=== PATIENT | male | born 1995 | race Caucasian/White ===

== ENCOUNTER 2018-04-16 01:31 | Outpatient (CLI) | payer BC, SELFPAY ==
--- NOTE | 2018-04-16 10:50 | DI.US_ITS ---
SYMPTOMS/DIAGNOSIS: THYROID PAIN, E07.89 THYROID ULTRASOUND: Routine examination was performed. The right lobe measures 4.3 x 1.4 x 1.4 cm. the left lobe measures 5.4 x 1.5 x 1.5 cm. The isthmus is within normal limits at 0.3 cm. The thyroid gland is homogeneous. No thyroid mass is seen. There is normal and symmetric blood flow to the thyroid gland. IMPRESSION: Normal thyroid ultrasound.
== END 2018-04-16 01:51 ==
PROVIDERS: PCP Nurse Practitioner; Visit Provider Nurse Practitioner
DX: E07.89 Other specified disorders of thyroid (principal)
CPT/HCPCS: 76536

== ENCOUNTER 2019-09-15 09:54 | Outpatient (REF) | payer BC, SELFPAY ==
[2019-09-15 19:03] LABS: Abs Immature Grans 0.02 k/cumm (0.0-0.09); Absolute Basophil Count 0.01 k/cumm (0.0-0.2); Absolute Eosinophil Count 0.07 k/cumm (0.0-0.7); Absolute Monocyte Count 0.43 k/cumm (0.11-0.7); Absolute Neutrophil Count 3.31 k/cumm (1.2-6.7); Basophils % 0.2; Eosinophils % 1.3; HCT 49.6 % (40.0-50.0); HGB 16.6 g/dL (13.5-17.5); Immature Grans % 0.4 %; Lymphocytes % 26.7; Mean Corp. HGB Concentration 33.5 g/dL (32.0-36.0); Mean Corpuscular Hemoglobin 29.1 pg (27.0-33.0); Mean Corpuscular Volume 86.9 fL (80-95); Mean Platelet Volume 10.2 fL (8.0-11.0); Monocytes % 8.2; Neutrophils % 63.2; Platelet Count 262 x1000/uL (130-400); RBC 5.71 m/cumm (4.50-6.00); RBC Distribution Width 13.7 % (11.8-14.1); White Blood Cell Count 5.24 k/cumm (4.4-10.8)
[2019-09-15 19:06] LABS: Mono Screening Negative (Negative)
[2019-09-15 20:30] LABS: ALT 36 U/L (16-63); AST 18 U/L (15-37); Albumin 4.7 g/dL (3.4-5.0); Alkaline Phosphatase 150 U/L (46-116); BUN 13 mg/dL (7-18); Bilirubin, Total 0.6 mg/dL (0.2-1.0); CREATININE 1.23 mg/dL (0.70-1.30); Calcium 9.4 mg/dL (8.5-10.1); Chloride 102 mmol/L (98-107); Glucose 85 mg/dL (74-106); Potassium 4.3 mmol/L (3.5-5.1); Sodium 140 mmol/L (136-145); Total Protein 8.2 g/dL (6.4-8.2)
[2019-09-17 09:51] LABS: Lyme Ab w Rflx to Lyme Confirm Negative (Negative)
[2019-09-20 23:24] LABS: Anaplasma phagocytophilum Negative (Negative); B. miyamotoi PCR Negative (Negative); Babesia divergens/MO-1 Negative (Negative); Babesia duncani Negative (Negative); Babesia microti Negative (Negative); Ehrlichia chaffeensis Negative (Negative); Ehrlichia ewingii/canis Negative (Negative); Ehrlichia muris eauclairensis Negative (Negative)
== END 2019-09-15 10:14 ==
LOC: LBO 09:54
PROVIDERS: Nurse Practitioner Adult Health; PCP Nurse Practitioner; Visit Provider Nurse Practitioner
DX: R53.83 Other fatigue (principal); M79.10 Myalgia, unspecified site; M25.50 Pain in unspecified joint
CPT/HCPCS: 80053; 87798; 85025; 86308; 86618

== ENCOUNTER 2019-09-16 09:14 | Outpatient (CLI) | payer BC, SELFPAY ==
[2019-09-17 15:39] LABS: COVID-19 RT-PCR Result NEGATIVE (Negative)
== END 2019-09-16 09:34 ==
PROVIDERS: PCP Nurse Practitioner; Visit Provider Nurse Practitioner Adult Health
DX: Z11.59 Encounter for screening for other viral diseases (principal)
CPT/HCPCS: U0003

== ENCOUNTER 2019-10-08 07:35 | Outpatient (CLI) | payer BC, SELFPAY ==
[2019-10-09 12:39] LABS: COVID-19 RT-PCR UVMMC Result Negative (Negative)
== END 2019-10-08 07:55 ==
PROVIDERS: PCP Nurse Practitioner; Visit Provider Family Medicine
DX: Z11.59 Encounter for screening for other viral diseases (principal)
CPT/HCPCS: U0003

== ENCOUNTER 2019-10-11 04:50 | Outpatient (CLI) | payer BC, SELFPAY ==
--- NOTE | 2019-10-13 08:32 | PFT_ITS ---
Date of service: 10/11/19 Time of Service: 15:05 Pulmonary Function Test Result Interpretation Spirometry: Spirometry shows borderline mild obstructive airways disease with no bronchodilator response. This may represent normal variant Lung Volumes: Not done Diffusion Capacity: Not done Airway Pressure: Not done Impression Spirometry shows borderline mild obstructive airways disease with no bronchodilator response. This may represent normal variant. Clinical correl ation recommended Clinical Correlation therefore is recommended.
== END 2019-10-11 05:10 ==
PROVIDERS: PCP Nurse Practitioner; Visit Provider Nurse Practitioner
DX: R06.09 Other forms of dyspnea (principal)
CPT/HCPCS: 94060

== ENCOUNTER 2019-11-01 09:24 | Outpatient (CLI) | payer BC, SELFPAY ==
[2019-11-04 01:50] LABS: SARS-CoV-2 RNA Undetected (Undetected); SARS-CoV-2 Specimen Source Nasopharynx
== END 2019-11-01 09:44 ==
PROVIDERS: PCP Nurse Practitioner; Visit Provider Nurse Practitioner
DX: Z11.59 Encounter for screening for other viral diseases (principal)
CPT/HCPCS: U0003

== ENCOUNTER 2020-01-24 02:16 | Outpatient (CLI) | payer BC, SELFPAY ==
[2020-01-26 14:36] LABS: Patient Race White; SARS-CoV-2 RNA Undetected (Undetected); SARS-CoV-2 Specimen Source Nasopharynx
== END 2020-01-24 02:36 ==
PROVIDERS: PCP Nurse Practitioner; Visit Provider Nurse Practitioner Adult Health
DX: Z11.59 Encounter for screening for other viral diseases (principal)
CPT/HCPCS: U0003

== ENCOUNTER 2020-03-29 11:20 | Outpatient (CLI) | payer BC, SELFPAY ==
[2020-04-01 14:43] LABS: Patient Race White; SARS-CoV-2 RNA Undetected (Undetected); SARS-CoV-2 Specimen Source Nasal
== END 2020-03-29 11:40 ==
PROVIDERS: PCP Nurse Practitioner; Visit Provider Nurse Practitioner
DX: Z11.59 Encounter for screening for other viral diseases (principal); Z20.828 Contact with and (suspected) exposure to other viral communicable diseases
CPT/HCPCS: U0003

== ENCOUNTER 2020-04-04 02:14 | Outpatient (CLI) | payer BC, SELFPAY ==
[2020-04-06 18:50] LABS: Patient Race White; SARS-CoV-2 RNA Undetected (Undetected); SARS-CoV-2 Specimen Source Nasal
== END 2020-04-04 02:34 ==
PROVIDERS: PCP Nurse Practitioner; Visit Provider Nurse Practitioner
DX: Z11.59 Encounter for screening for other viral diseases (principal); Z20.828 Contact with and (suspected) exposure to other viral communicable diseases
CPT/HCPCS: U0003